=== PATIENT | female | born 1965 | race Caucasian/White ===

== ENCOUNTER 2018-06-01 17:37 | Inpatient (IN) | payer MEDICAID, OTHER ==
[~2018-06-01] VITALS: Ht 177.8 cm; Wt 83.9 kg
[2018-06-01 17:56] VITALS: BP_SYST 62
[2018-06-01] MEDS ORDERED: NACL 0.9% 1,000 ML IV ONE (18:15)
[2018-06-01 18:37] LABS: HEMATOCRIT 39.6 % (36-48); HEMOGLOBIN 13.4 g/dL (12.0-16.0); MEAN CORPUSCULAR HEMOGLOBIN 31 pg (27-31); MEAN CORPUSCULAR HGB CONC 34 % (32-36); MEAN CORPUSCULAR VOLUME 90 fL (79.0-98.0); PLATELET COUNT (AUTO) 592 K/uL (130-430); RED BLOOD CELL COUNT(AUTO) 4.39 MIL/uL (4.2-6.2); RED CELL DISTRIBUTION WIDTH 12.2 % (9.0-15.0); WHITE BLOOD COUNT (AUTO) 18.4 K/uL (4.8-10.8)
[2018-06-01 18:49] LABS: CALCIUM 9.7 mg/dL (8.4-11.0); CREATININE 1.94 mg/dL (0.55-1.30); POTASSIUM 4.3 mmol/L (3.5-5.1)
[2018-06-01 18:54] LABS: ALBUMIN 3.5 g/dL (3.4-4.8); TOTAL BILIRUBIN 0.3 mg/dL (0.0-1.0)
[2018-06-01 19:14] LABS: BAND % (MANUAL) 4 % (0-6); LYMPHOCYTES % (MANUAL) 11 % (20-46)
[2018-06-01 19:15] LABS: BASOPHILS % (MANUAL) 0 % (0-2); EOSINOPHILS % (MANUAL) 0 % (0-7); MONOCYTES % (MANUAL) 9 % (0-11)
[2018-06-01 20:04] LABS: CLARITY/URINE SL CLOUDY (CLEAR); COLOR,URINE YELLOW (YELLOW); PH,URINE 5.5 (5.0-8.0)
[2018-06-01 20:05] LABS: BILIRUBIN,URINE NEGATIVE (NEGATIVE); BLOOD, URINE TRACE (NEGATIVE); GLUCOSE,URINE TRACE (NEGATIVE); KETONES,URINE TRACE (NEGATIVE); LEUKOCYTE ESTERASE ,URINE TRACE (NEGATIVE); NITRITE, URINE NEGATIVE (NEGATIVE); PROTEIN URINE 2+ (NEGATIVE); UROBILINOGEN,URINE 0.2 (0.2-1.0)
[2018-06-01 20:09] LABS: BACTERIA,URINE MODERATE /HPF (None Seen); HYALINE CASTS, URINE 0-10 /LPF (None Seen); MUCUS,URINE 1+ /LPF (None Seen)
[2018-06-01 20:14] LABS: BARBITURATE, URINE NEGATIVE (NEG <=200); BENZODIAZEPINE, URINE NEGATIVE (NEG <=150); CANNABINOID, URINE POSITIVE (NEG <=50); COCAINE, URINE NEGATIVE (NEG <=150); METHAMPHETAMINES SCREEN,URINE NEGATIVE (NEG <=500); OPIATE, URINE NEGATIVE (NEG <=100); PHENCYCLIDINE SCREEN,URINE NEGATIVE (NEG <=25); UR TRICYCLIC ANTIDEPRESSANTS NEGATIVE (NEG <=300); URINE AMPHETAMINE NEGATIVE (NEG <=500); URINE METHADONE NEGATIVE (NEG <=200); URINE OXYCODONE SCREEN NEGATIVE (NEG <=100); URINE PROPOXYPHENE SCREEN NEGATIVE (NEG <=300)
[2018-06-01] MEDS ORDERED: LEVOFLOXACIN 500 MG/D5W 100 ML IV ONE (21:45)
[2018-06-01] MEDS ORDERED: SIMV20OR PO (22:16)
[2018-06-01] MEDS ORDERED: LISI-209 PO (22:16)
[2018-06-01] MEDS ORDERED: BREX0.25 PO (22:16)
[2018-06-01] MEDS ORDERED: GABA-529 PO (22:16)
[2018-06-01] MEDS ORDERED: VORT5TAB PO (22:16)
[2018-06-01] MEDS ORDERED: METH1TAB47 PO (22:16)
[2018-06-01] MEDS ORDERED: METF500T7 PO (22:16)
[2018-06-01] MEDS ORDERED: ACETAMINOPHEN 325 MG TABLET PO ONE (22:30)
[2018-06-01 22:50] VITALS: BP_SYST 89
[2018-06-02 00:19] VITALS: BP_SYST 98
[2018-06-02] MEDS: NACL 0.9% 1,000 ML IV SCH ×3 (00:33→20:31)
[2018-06-02 06:46] LABS: BASOPHILS # (AUTO) 0.3 K/uL (0.0-0.2); EOSINOPHILS # (AUTO) 0.1 K/uL (0.0-0.4); EOSINOPHILS % (AUTO) 0.8 % (0.0-4.0); HEMATOCRIT 34.1 % (36-48); HEMOGLOBIN 11.3 g/dL (12.0-16.0); LYMPHOCYTES # (AUTO) 3.3 K/uL (1.0-5.5); LYMPHOCYTES % (AUTO) 26.8 % (20.5-51.5); MEAN CORPUSCULAR HEMOGLOBIN 30 pg (27-31); MEAN CORPUSCULAR HGB CONC 33 % (32-36); MEAN CORPUSCULAR VOLUME 91 fL (79.0-98.0); MONOCYTES # (AUTO) 0.9 K/uL (0.0-1.0); MONOCYTES % (AUTO) 7.3 % (1.7-9.3); NEUTROPHILS # (AUTO) 7.7 K/uL (1.8-7.7); PLATELET COUNT (AUTO) 482 K/uL (130-430); RED BLOOD CELL COUNT(AUTO) 3.74 MIL/uL (4.2-6.2); RED CELL DISTRIBUTION WIDTH 12.4 % (9.0-15.0); WHITE BLOOD COUNT (AUTO) 12.3 K/uL (4.8-10.8)
[2018-06-02 06:50] LABS: ALBUMIN 2.9 g/dL (3.4-4.8); CREATININE 1.8 mg/dL (0.55-1.30); POTASSIUM 4.4 mmol/L (3.5-5.1); TOTAL BILIRUBIN 0.3 mg/dL (0.0-1.0)
[2018-06-02 07:03] LABS: NEUTROPHILS % (AUTO) 62.5 % (40.0-70.0)
[2018-06-02 07:13] LABS: BASOPHILS % (AUTO) 1.3 % (0.0-2.0)
[2018-06-02 07:40] VITALS: BP_SYST 135
[2018-06-02] MEDS: GABAPENTIN 100 MG CAPSULE PO SCH ×2 (09:07→20:32)
[2018-06-02] MEDS: metFORMIN HCL 500 MG TABLET PO SCH (09:08)
[2018-06-02] MEDS ORDERED: ACETAMINOPHEN 325 MG TABLET PO PRN (09:30)
[2018-06-02] MEDS ORDERED: DEXTROSE 50%-WATER 50 ML DISP.SYRIN IVP PRN (11:15)
[2018-06-02] MEDS ORDERED: GLUCOSE 15 GM GEL (in 37.5 GM TUBE) PO PRN (11:15)
[2018-06-02] MEDS ORDERED: D5W 1,000 ML IV PRN (11:15)
[2018-06-02] MEDS: INSULIN REGULAR, HUMAN 100 UNITS/ML, 10 ML VIAL (novoLIN R) SUBCUT PRN ×3 (11:19→20:42)
[2018-06-02] MEDS ORDERED: CARISOPRODOL 350 MG TABLET PO PRN (14:45)
[2018-06-02 16:04] VITALS: BP_SYST 161
[2018-06-02] MEDS: HYDROcodone/ACETAMIN 5-325 MG TAB (NORCO/ VICODIN) PO PRN ×2 (16:04→21:51)
[2018-06-02 19:00] VITALS: BP_SYST 154
[2018-06-02 20:00] VITALS: BP_SYST 154
[2018-06-02] MEDS ORDERED: SIMVASTATIN 20 MG TABLET PO SCH (21:00)
[2018-06-02] MEDS ORDERED: LEVOFLOXACIN 500 MG/D5W 100 ML IV SCH (21:00)
[2018-06-03 00:03] VITALS: BP_SYST 136
[2018-06-03] MEDS: HYDROcodone/ACETAMIN 5-325 MG TAB (NORCO/ VICODIN) PO PRN ×4 (03:56→15:40)
[2018-06-03] MEDS: NACL 0.9% 1,000 ML IV SCH ×2 (06:00→09:31)
[2018-06-03] MEDS: INSULIN REGULAR, HUMAN 100 UNITS/ML, 10 ML VIAL (novoLIN R) SUBCUT PRN ×2 (06:19→12:02)
[2018-06-03 06:55] LABS: BASOPHILS # (AUTO) 0.1 K/uL (0.0-0.2); BASOPHILS % (AUTO) 1.1 % (0.0-2.0); EOSINOPHILS # (AUTO) 0.1 K/uL (0.0-0.4); EOSINOPHILS % (AUTO) 1.8 % (0.0-4.0); HEMATOCRIT 34.3 % (36-48); HEMOGLOBIN 11.5 g/dL (12.0-16.0); LYMPHOCYTES # (AUTO) 2.5 K/uL (1.0-5.5); LYMPHOCYTES % (AUTO) 30.8 % (20.5-51.5); MEAN CORPUSCULAR HEMOGLOBIN 31 pg (27-31); MEAN CORPUSCULAR HGB CONC 34 % (32-36); MEAN CORPUSCULAR VOLUME 91 fL (79.0-98.0); MONOCYTES # (AUTO) 0.6 K/uL (0.0-1.0); MONOCYTES % (AUTO) 7.8 % (1.7-9.3); NEUTROPHILS # (AUTO) 4.8 K/uL (1.8-7.7); NEUTROPHILS % (AUTO) 58.5 % (40.0-70.0); PLATELET COUNT (AUTO) 463 K/uL (130-430); RED BLOOD CELL COUNT(AUTO) 3.77 MIL/uL (4.2-6.2); RED CELL DISTRIBUTION WIDTH 12.4 % (9.0-15.0); WHITE BLOOD COUNT (AUTO) 8.1 K/uL (4.8-10.8)
[2018-06-03] MEDS: GABAPENTIN 100 MG CAPSULE PO SCH (08:12)
[2018-06-03] MEDS: metFORMIN HCL 500 MG TABLET PO SCH (08:14)
[2018-06-03 09:47] VITALS: BP_SYST 146
[2018-06-03 12:00] VITALS: BP_SYST 154
[2018-06-03 15:34] VITALS: BP_SYST 154
[2018-06-03] MEDS ORDERED: LEVO250T2 PO (16:21)
== END 2018-06-03 17:35 | disposition home or self-care (01) | DRG 312 ==
LOC: SED 17:37 → STU 22:18
PROVIDERS: ADMIT Family Medicine; ATTEND Family Medicine
DX: I95.1 Orthostatic hypotension (principal); N39.0 Urinary tract infection, site not specified; N18.4 Chronic kidney disease, stage 4 (severe); J20.9 Acute bronchitis, unspecified; E11.22 Type 2 diabetes mellitus with diabetic chronic kidney disease; E11.319 Type 2 diabetes mellitus with unspecified diabetic retinopathy without macular edema; E11.40 Type 2 diabetes mellitus with diabetic neuropathy, unspecified; I12.9 Hypertensive chronic kidney disease with stage 1 through stage 4 chronic kidney disease, or unspecified chronic kidney disease; E78.5 Hyperlipidemia, unspecified; F12.90 Cannabis use, unspecified, uncomplicated; F17.210 Nicotine dependence, cigarettes, uncomplicated; R29.6 Repeated falls; W18.39XA Other fall on same level, initial encounter; Z79.4 Long term (current) use of insulin; Y93.89 Activity, other specified; Y92.89 Other specified places as the place of occurrence of the external cause; Y99.8 Other external cause status
CPT/HCPCS: 36415; 71045; 71110; 80053; 80307; 81000-TC; 82962; 83605; 85007; 85025; 85027; 87040-TC; 87086; 90656; 93005; 96361; 96365; 99285; G0378; J1815; J1956; J7030